=== PATIENT | female | born 1975 | race Caucasian/White ===

== ENCOUNTER → 2018-01-01 | Outpatient (CLI) | payer OTHER | LOC: M.ULTRA 10:38 | DX: E28.2 Polycystic ovarian syndrome (principal); N92.6 Irregular menstruation, unspecified; M51.36 Other intervertebral disc degeneration, lumbar region; M54.42 Lumbago with sciatica, left side; M54.41 Lumbago with sciatica, right side; G89.29 Other chronic pain ==

== ENCOUNTER → 2019-11-10 | Outpatient (CLI) | payer OTHER | LOC: M.RAD 10:35 | DX: Z12.31 Encounter for screening mammogram for malignant neoplasm of breast (principal) ==

== ENCOUNTER → 2020-02-07 | Outpatient (CLI) | payer OTHER | LOC: M.ULTRA 10:19 | DX: R10.84 Generalized abdominal pain (principal); Z90.49 Acquired absence of other specified parts of digestive tract ==